=== PATIENT | female | born 1945 | race Caucasian/White ===

== ENCOUNTER → 2017-10-06 | Outpatient (CLI) | payer MEDICARE ==
[~2017-10-06] MED LIST: ALBU8.5H IH; AMIO200T51 PO; APIX2.5T PO; ASPI-757 PO; ASPI-816 CHEW; ASPI81TA94 PO; ATOR10TA24 PO; ATOR20TA22 PO; ATOR40TA24 PO; AZIT-17 PO; CAR3.125 PO; CLOP75TA43 PO; DOCU-202 PO; DOCU-416 PO; FLUT1DIS28 IH; FURO-45 PO; IPRA3AMP21 IH; LISI-362 PO; LISI5TAB25 PO; LOR5/325 PO; LOSA25TA50 PO; METO50TA19 PO; MULT-865 PO; MULT1CAP59 PO; MYLANTA; OMEP-218 PO; OXYGENHOME INH; POTA10CA40 PO; PRED20TA6 PO; SPIR25TA76 PO; SPIR25TA78 PO; TIOT4MIS3 INH; TRAM-420 PO
[2017-10-06 17:26] LABS: PLATELET COUNT, AUTOMATED 178 K/uL (150-450)
== END ==
LOC: LAB 16:54
PROVIDERS: ATTEND Emergency Medicine
DX: I48.2 Chronic atrial fibrillation (principal); R07.89 Other chest pain; R06.00 Dyspnea, unspecified
CPT/HCPCS: 36415; 82040; 82247; 82274; 82310; 82374; 82435; 82565; 82947; 83880; 84075; 84132; 84155; 84295; 84443; 84450; 84460; 84484; 84520; 85025; 85379

== ENCOUNTER → 2017-12-30 | Outpatient (CLI) | payer MEDICARE ==
[~2017-12-30] MED LIST changes: +ATOR40TA69 PO; +DIPH-1 PO; +FERR-53 PO; +ONDA4TAB97 PO
--- NOTE | 2017-12-31 18:00 | RT HOLTER TEST ---
FACILITY: [facility] PATIENT NAME: ANGIE LORENZO : [id number] MR: [id number] V: [id number] EXAM DATE: ORDERING PHYSICIAN: ELI LOCKETT TECHNOLOGIST: RAJIV Doan date: 2017-12-30 13:16:00 Duration: 23:47:00 Test Indications: AFIB Medications: 373980 QRS complexes 35262 Ventricular ectopics which represent 20 % of total QRS comp. 1420 Supraventricular ectopics which represent 1 % of total QRS comp. * Paced QRS complexes which represent % of total QRS comp. VENTRICULAR ECTOPY 62972 Isolated 2204 Bigeminal Cycles 3087 Couplets 616 Runs 2034 Beats in Runs 8 Beats LONGEST at 110 BPM at 04:18:10 2017-12-31 3 Beats FASTEST at 192 BPM at 01:15:16 2017-12-31 SUPRAVENTRICULAR ECTOPY 1371 Isolated 10 Couplets 5 Runs 29 Beats in Runs 14 Beats LONGEST at 175 BPM at 13:50:16 2017-12-30 14 Beats FASTEST at 175 BPM at 13:50:16 2017-12-30 HEART RATES 67 MIN at 07:35:49 2017-12-31 88 AVG 178 MAX at 13:50:19 2017-12-30 LONGEST RR 1.312 secs at 04:51:31 2017-12-31 S-T LEVELS Channel 1 -12.800 mm MIN at 13:16:00 2017-12-30 -12.800 mm MAX at 13:16:00 2017-12-30 Channel 2 -12.800 mm MIN at 13:16:00 2017-12-30 -12.800 mm MAX at 13:16:00 2017-12-30 Channel 3 -12.800 mm MIN at 13:16:00 2017-12-30 -12.800 mm MAX at 13:16:00 2017-12-30 There were no reported symptoms during the test. The patient has an intraventricular conduction michelle y and is predominantly in a sinus rhythm. There was much ventricular ectopy (VE) beats including couplets and bigeminy. There was a 4 beat run of VE at 110 beats per minute (bpm) and a 3 beat run at 94 bpm. There was some supraventricular ectopy (SVE) including a 14 beat run at 175 bpm, a 5 be at run at 172 bpm and a 4 beat run at 152 bpm. Confirmed by MANFRED SKELTON ([id number]) on 12/31/2017 5:59:49 PM Referred By: Overread By: MANFRED SKELTON
== END ==
LOC: RESP 02:39
PROVIDERS: ATTEND Internal Medicine Clinical Cardiac Electrophysiology
DX: I48.1 Persistent atrial fibrillation (principal)
CPT/HCPCS: 93225; 93226

== ENCOUNTER → 2018-01-26 | Outpatient (CLI) | payer MEDICARE ==
[~2018-01-26] MED LIST changes: -ASPI-816 CHEW; +ASPI-870 CHEW
[2018-01-26 16:35] LABS: PLATELET COUNT, AUTOMATED 162 K/uL (150-450)
== END ==
LOC: LAB 16:19
PROVIDERS: ATTEND Emergency Medicine
DX: I50.9 Heart failure, unspecified (principal); D64.9 Anemia, unspecified
CPT/HCPCS: 36415; 82465; 83718; 84478; 85025

== ENCOUNTER → 2018-04-08 | Outpatient (CLI) | payer MEDICARE ==
[~2018-04-08] MED LIST changes: +FLUT1AER INH; +IPRA3AMP10 IH; -IPRA3AMP21 IH; -SPIR25TA78 PO; +SPIR25TA80 PO
== END ==
LOC: US 07:21
PROVIDERS: ATTEND Internal Medicine Clinical Cardiac Electrophysiology
DX: I51.7 Cardiomegaly (principal); I50.9 Heart failure, unspecified
CPT/HCPCS: 93325; C8929; Q9957

== ENCOUNTER → 2018-04-29 | Outpatient (CLI) | payer MEDICARE ==
[2018-04-29 16:17] LABS: PLATELET COUNT, AUTOMATED 116 K/uL (150-450)
[2018-04-29 16:35] LABS: LDL CHOLESTEROL 62 mg/dl
== END ==
LOC: LAB 15:56
PROVIDERS: ATTEND Emergency Medicine
DX: I25.10 Atherosclerotic heart disease of native coronary artery without angina pectoris (principal); R25.2 Cramp and spasm; D69.6 Thrombocytopenia, unspecified
CPT/HCPCS: 36415; 82040; 82247; 82306; 82310; 82374; 82435; 82465; 82550; 82565; 82607; 82947; 83540; 83550; 83718; 84075; 84132; 84155; 84295; 84450; 84460; 84478; 84520; 85025

== ENCOUNTER → 2018-05-11 | Outpatient (CLI) | payer MEDICARE | LOC: LAB 13:17 | PROVIDERS: ATTEND Internal Medicine Clinical Cardiac Electrophysiology | DX: I48.1 Persistent atrial fibrillation (principal) | CPT/HCPCS: 36415; 85027 ==

== ENCOUNTER 2018-07-04 15:49 | Emergency (ER) | payer MEDICARE ==
[~2018-07-04 15:49] MED LIST changes: -BUME1TAB19 PO; -METO25TA23 PO
[2018-07-04] MEDS ORDERED: BUME1TAB19 PO (16:02)
[2018-07-04] MEDS ORDERED: METO25TA23 PO (16:02)
--- NOTE | 2018-07-04 16:17 | ER Report ---
History and Physical Time Seen By MD: 15:57 HPI/ROS CHIEF COMPLAINT: fluid overload HISTORY OF PRESENT ILLNESS: Pt is 72 y/o f with chf, htn, chronic afib on multiple vasoactive medications and diuretics, recently placed on bumex due to LE edema refractory to lasix. Despite this, pt has had continued slight weight gain, increasing LE edema and pain, and now with inability to perform ADL's due to discomfort. Pt c/o some sob with mild exertion as well as recumbancy; lies on 2 pillows daily, which is change.No chest pain REVIEW OF SYSTEMS: Constitutional: No fever, no chills. Eyes: No discharge. ENT: No sore throat. Cardiovascular: No chest pain, no palpitations. Respiratory: above Gastrointestinal: No abdominal pain, no vomiting. Genitourinary: No hematuria. Musculoskeletal: No back pain. Skin: No rashes. Neurological: No headache. Remainder of the 14 system rev: Yes Allergies: Coded Allergies: Penicillins (Verified Allergy, Unknown, 07/04/18) RASH cefprozil (Verified Allergy, Unknown, 07/04/18) rofecoxib (Verified Allergy, Unknown, 07/04/18) Home Meds Active Scripts Potassium Chloride (POTASSIUM CHLORIDE) 10 Meq Capsule.er, 10 MEQ PO DAILY, #90 TAB 3 Refills Prov:SPIKE ANDERSON MD 06/03/18 Fluticasone/Vilanterol 100/25 Mcg/Inh (BREO ELLIPTA 100/25 MCG) 1 Each Aer.pow.ba, 1 INH INH DAILY, #1 INH 11 Refills Prov:SPIKE ANDERSON MD 02/05/18 Spironolactone (ALDACTONE) 25 Mg Tablet, 1 TAB PO QDAY, #90 TAB 3 Refills Prov:SPIKE ANDERSON MD 02/02/18 Atorvastatin Calcium (ATORVASTATIN CALCIUM) 40 Mg Tablet, 1 TAB PO QDAY, #90 TAB 3 Refills Prov:SPIKE ANDERSON MD 11/21/17 Ferrous Sulfate (FERROUS SULFATE) 325 Mg Tablet, 325 MG PO DAILY, #100 TAB 1 Refill Prov:SPIKE ANDERSON MD 10/13/17 Ipratropium/Albuterol Sulfate (IPRAT-ALBUT 0.5-3(2.5) MG/3 ML) 3 Ml Ampul.neb, 3 ML IH Q4-6H, #1 BOX Prov:JAD SWENSON [facility] 07/25/17 Albuterol Sulfate 90 Mcg/Act (PROAIR HFA 90 MCG/ACT) 8.5 Gm Hfa.aer.ad, 1-2 PUFF IH 3-4XD, #1 INHALER Prov:JAD SWENSON [facility] 07/25/17 Reported Medications Metoprolol Succinate (METOPROLOL SUCCINATE) 25 Mg Tab.er.24h, 50 TAB PO QDAY 07/04/18 Bumetanide (BUMETANIDE) 1 Mg Tablet, 2 TAB PO QDAY 07/04/18 Oxygen (OXYGEN) Inha, 2 L INH DAILY, L 10/06/17 Losartan Potassium (LOSARTAN POTASSIUM) 25 Mg Tablet, 25 MG PO QDAY 07/25/17 Furosemide (FUROSEMIDE) 20 Mg Tablet, 1 TAB PO DAILY, TAB 07/25/17 Aspirin (ASPIRIN) 81 Mg Tab.chew, 81 MG PO QDAY, TAB.CHEW 07/25/17 Omeprazole Magnesium (PRILOSEC OTC) 20 Mg Tablet.dr, 2 TAB PO DAILY, TAB 07/25/17 Discontinued Scripts Tramadol Hcl (TRAMADOL HCL) 50 Mg Tablet, 50 MG PO Q4-6H, #30 TAB Prov:SPIKE ANDERSON MD 04/13/18 Diphenoxylate Hcl/Atropine (LOMOTIL TABLET) 1 Each Tablet, 1 EACH PO QID, #30 TAB Prov:SPIKE ANDERSON MD 11/03/17 Reviewed Nurses Notes: Yes Old Medical Records Reviewed: Yes Hx Smoking: Yes Smoking Status: Former Smoker Exposure to Second Hand Smoke?: No Hx Substance Use Disorder: No Hx Alcohol Use: No Constitutional Vital Sign - Last 24 Hours 07/04/18 07/04/18 07/04/18 07/04/18 16:00 16:00 16:14 16:19 Temp 97.8 Pulse 85 117 Resp 20 B/P (MAP) 131/73 131/73 (92) Pulse Ox 90 75 O2 Delivery Nasal Cannula O2 Flow Rate 3.0 07/04/18 07/04/18 07/04/18 07/04/18 16:30 16:34 16:49 17:00 Pulse 119 111 Resp 24 23 B/P (MAP) 90/58 (69) 84/66 (72) Pulse Ox 96 96 07/04/18 07/04/18 07/04/18 07/04/18 17:04 17:09 17:13 17:18 Pulse 110 109 Resp 26 17 B/P (MAP) 82/70 (74) 101/81 (88) Pulse Ox 96 96 07/04/18 07/04/18 07/04/18 07/04/18 17:24 17:30 17:35 17:50 Pulse 124 119 120 Resp 21 24 18 B/P (MAP) 85/63 (70) Pulse Ox 92 96 96 07/04/18 07/04/18 07/04/18 07/04/18 18:05 18:10 18:15 18:41 Pulse 127 122 128 123 Resp 17 21 33 22 B/P (MAP) 86/63 (71) 123/57 (79) Pulse Ox 93 95 99 99 07/04/18 07/04/18 19:01 19:20 Pulse 122 118 Resp 20 20 B/P (MAP) 85/54 (64) 86/53 (64) Pulse Ox 95 96 O2 Delivery Nasal Cannula Nasal Cannula O2 Flow Rate 3 Intake and Output 07/04/18 07/04/18 07/05/18 15:00 23:00 07:00 Intake Total 125 ml Output Total 50 ml Balance 75 ml Physical Exam General Appearance: The patient is alert, has no immediate need for airway protection and no signs of toxicity. Pt on baseline 02, slightly dyspneic on conversation Eyes: Pupils equal and round no pallor or injection. ENT, Mouth: Mucous membranes are moist. Respiratory: There are no retractions, decreased at bases, occ ronchi Cardiovascular: irreg rhythm, reg rate Gastrointestinal: Abdomen is soft and non tender, no masses, bowel sounds normal. Neurological: alert, oriented Skin: Warm and dry, no rashes. Musculoskeletal: Neck is supple non tender. ext - sig bilat edema. No focal cords or ttp [ ] [DIFFERENTIAL DIAGNOSIS: After history and physical exam differential diagnosis was considered for chest pain including but not limited to myocardial ischemia, pericarditis pulmonary embolus, chest wall pain, pleural inflammation and pulmon arash infectious causes.shortness of breath including but not limited to pulmonary infectious process, COPD, asthma, pulmonary embolus and congestive heart failure. Medical Decision Making Data Points Result Diagram: 07/04/18 16207/04/181623 Laboratory Hematology Test 07/04/18 16:24 07/04/18 17:25 Red Blood Count 4.81 M/uL (4.17-5.56) Mean Corpuscular Volume 94.7 fL (80.0-96.0) Mean Corpuscular Hemoglobin 30.9 pg (26.0-33.0) Mean Corpuscular Hemoglobin Concent 32.6 g/dL (32.0-36.0) Red Cell Distribution Width 15.7 % (11.5-14.5) Mean Platelet Volume 10.1 fL (7.2-11.1) Neutrophils (%) (Auto) 60.6 % (39.4-72.5) Lymphocytes (%) (Auto) 32.1 % (17.6-49.6) Monocytes (%) (Auto) 5.8 % (4.1-12.4) Eosinophils (%) (Auto) 0.5 % (0.4-6.7) Basophils (%) (Auto) 1.0 % (0.3-1.4) Nucleated RBC Relative Count (auto) 0.2 /100WBC Neutrophils # (Auto) 3.1 K/uL (2.0-7.4) Lymphocytes # (Auto) 1.6 K/uL (1.3-3.6) Monocytes # (Auto) 0.3 K/uL (0.3-1.0) Eosinophils # (Auto) 0.0 K/uL (0.0-0.5) Basophils # (Auto) 0.1 K/uL (0.0-0.1) Nucleated RBC Absolute Count (auto) 0.01 K/uL Sodium Level 135 mmol/L (137-145) Potassium Level 4.1 mmol/L (3.5-5.0) Chloride Level 95 mmol/L (98-107) Carbon Dioxide Level 24 mmol/L (22-31) Blood Urea Nitrogen 32 mg/dl (7-18) Creatinine 1.80 mg/dl (0.52-1.04) Glomerular Filtration Rate Calc 27.7 Random Glucose 116 mg/dl (75-110) Calcium Level 9.1 mg/dl (8.4-10.2) Total Bilirubin 4.3 mg/dl (0.2-1.3) Aspartate Amino Transf (AST/SGOT) 70 U/L (0-35) Alanine Aminotransferase (ALT/SGPT) 66 U/L (0-56) Alkaline Phosphatase 129 U/L (0-126) Troponin I 0.058 ng/ml B-Type Natriuretic Peptide 1060 pg/ml (0-100) Total Protein 6.5 g/dl (6.3-8.2) Albumin 3.4 g/dl (3.5-5.0) Urine Color Catarina Urine Clarity Slightly-cloudy Urine pH 5.0 pH (4.8-9.5) Urine Specific [place] 1.013 Urine Protein 30 mg/dL (NEGATIVE) Urine Glucose (UA) Negative mg/dL (NEGATIVE) Urine Ketones Negative mg/dL (NEGATIVE) Urine Blood Negative (NEGATIVE) Urine Nitrite Negative (NEGATIVE) Urine Bilirubin Negative (NEGATIVE) Urine Urobilinogen 4.0 mg/dL (0.2-1.9) Urine Leukocyte Esterase Trace (NEGATIVE) Urine RBC 1 /HPF (0-2/HPF) Urine WBC 38 /HPF (0-5/HPF) Urine WBC Clumps Few /HPF Urine Squamous Epithelial Cells Many /LPF (NONE-FEW) Urine Bacteria Few /HPF (NONE-FEW) Urine Hyaline Casts Many /LPF (NONE-FEW) Urine Mucus Few /HPF (NONE-FEW) Chemistry Test 07/04/18 16:24 07/04/18 17:25 White Blood Count 5.1 k/uL (4.5-11.0) Red Blood Count 4.81 M/uL (4.17-5.56) Hemoglobin 14.8 g/dL (12.0-16.0) Hematocrit 45.6 % (34.0-47.0) Mean Corpuscular Volume 94.7 fL (80.0-96.0) Mean Corpuscular Hemoglobin 30.9 pg (26.0-33.0) Mean Corpuscular Hemoglobin Concent 32.6 g/dL (32.0-36.0) Red Cell Distribution Width 15.7 % (11.5-14.5) Platelet Count 106 K/uL (150-450) Mean Platelet Volume 10.1 fL (7.2-11.1) Neutrophils (%) (Auto) 60.6 % (39.4-72.5) Lymphocytes (%) (Auto) 32.1 % (17.6-49.6) Monocytes (%) (Auto) 5.8 % (4.1-12.4) Eosinophils (%) (Auto) 0.5 % (0.4-6.7) Basophils (%) (Auto) 1.0 % (0.3-1.4) Nucleated RBC Relative Count (auto) 0.2 /100WBC Neutrophils # (Auto) 3.1 K/uL (2.0-7.4) Lymphocytes # (Auto) 1.6 K/uL (1.3-3.6) Monocytes # (Auto) 0.3 K/uL (0.3-1.0) Eosinophils # (Auto) 0.0 K/uL (0.0-0.5) Basophils # (Auto) 0.1 K/uL (0.0-0.1) Nucleated RBC Absolute Count (auto) 0.01 K/uL Glomerular Filtration Rate Calc 27.7 Calcium Level 9.1 mg/dl (8.4-10.2) Total Bilirubin 4.3 mg/dl (0.2-1.3) Aspartate Amino Transf (AST/SGOT) 70 U/L (0-35) Alanine Aminotransferase (ALT/SGPT) 66 U/L (0-56) Alkaline Phosphatase 129 U/L (0-126) Troponin I 0.058 ng/ml B-Type Natriuretic Peptide 1060 pg/ml (0-100) Total Protein 6.5 g/dl (6.3-8.2) Albumin 3.4 g/dl (3.5-5.0) Urine Color Catarina Urine Clarity Slightly-cloudy Urine pH 5.0 pH (4.8-9.5) Urine Specific [place] 1.013 Urine Protein 30 mg/dL (NEGATIVE) Urine Glucose (UA) Negative mg/dL (NEGATIVE) Urine Ketones Negative mg/dL (NEGATIVE) Urine Blood Negative (NEGATIVE) Urine Nitrite Negative (NEGATIVE) Urine Bilirubin Negative (NEGATIVE) Urine Urobilinogen 4.0 mg/dL (0.2-1.9) Urine Leukocyte Esterase Trace (NEGATIVE) Urine RBC 1 /HPF (0-2/HPF) Urine WBC 38 /HPF (0-5/HPF) Urine WBC Clumps Few /HPF Urine Squamous Epithelial Cells Many /LPF (NONE-FEW) Urine Bacteria Few /HPF (NONE-FEW) Urine Hyaline Casts Many /LPF (NONE-FEW) Urine Mucus Few /HPF (NONE-FEW) Urinalysis Test 07/04/18 17:25 Urine Color Catarina Urine Clarity Slightly-cloudy Urine pH 5.0 pH (4.8-9.5) Urine Specific [place] 1.013 Urine Protein 30 mg/dL (NEGATIVE) Urine Glucose (UA) Negative mg/dL (NEGATIVE) Urine Ketones Negative mg/dL (NEGATIVE) Urine Blood Negative (NEGATIVE) Urine Nitrite Negative (NEGATIVE) Urine Bilirubin Negative (NEGATIVE) Urine Urobilinogen 4.0 mg/dL (0.2-1.9) Urine Leukocyte Esterase Trace (NEGATIVE) Urine RBC 1 /HPF (0-2/HPF) Urine WBC 38 /HPF (0-5/HPF) Urine WBC Clumps Few /HPF Urine Squamous Epithelial Cells Many /LPF (NONE-FEW) Urine Bacteria Few /HPF (NONE-FEW) Urine Hyaline Casts Many /LPF (NONE-FEW) Urine Mucus Few /HPF (NONE-FEW) EKG/Imaging EKG Interpretation 12 lead EKG: Rhythm: atrial fibrillation [place]: normal QRS: borderline qrs ST segments: twi throughout no stemi Monitor Interpretation: Atrial Fibrillation Imaging X-ray: chest was obtained. I viewed the images myself on the PACS system. My interpretation of the images is: left pleural effusion. The radiologist interpretation had no clinically significant variation from this interpretation. ED Course/Re-evaluation Clinical Indication for ER IV: Hypotention ED Course Patient presents with evidence of acute fluid overload, both peripheral edema as well as left pleural effusion. We'll her initial blood pressure is normal repeat blood pressures show systolics in consistently in the 80s. Heart rate is between 110 and 125 with atrial fibrillation. I considered that she is unstable due to the A. fib with RVR, however also consider instability due to decreased EF as evidenced by bedside ultrasound, which I performed to rule out pericardial effusion. There is no evidence of pericardial effusion. Patient also has evidence of decreased intravascular volume as her urine output is less than 50 ML's within the first 2 hours of Metz catheter placement. I consult cardiology at [facility] and talked with Dr. Wood. After discussion of case we agreed to try 125 ML's of normal saline over an hour. I also spoke with Dr. Dixon, hospitalist at [facility], for admission. We will transfer and admit to stepdown unit. We considered rate or rhythm control, however patient is high risk for thromboembolus. Given EF, she is not a great candidate for rhythm control with other then digitoxin. On my reassessment prior to receiving fluids, blood pressure was 74 systolic. At this point I feel like central line benefits outweigh risk. I consented patient for central line and placed a right IJ central line under ultrasound guidance. After IV fluids and central line placement, patient does have a systolic blood pressure 125 with heart rate between 110 and 115. If she becomes hypotensive I will consider either dobutamine or initiation of digoxin for rate control. At this point, patient has been stabilized as best as possible for transfer. Patient understands risks of transfer. In discussion with the patient she also did reiterate she is full code. Procedure Procedure: Central line placement. After written informed consent from patient; with the risks explained to be bleeding, infection, and collapsed lung; maximal sterile barrier technique was uses including cap, gown, sterile gloves, large sheet, hand washing and chlorhe xidine prep. The area anesthetized with 1% lidocaine. The right IJ was punctured with a 19 gauge finder needle, then a wire introducer was placed, a 7 Chinese triple lumen was placed using Seldinger technique. There were no complications. Blood return low pressure, dark blood. Patient tolerated procedure well. CXR results: initially CL 2.5 cm deep; CL was adjusted; I reviewed xray. Xray was interpreted by myself. Radiologist interpretation is pending. The procedure was performed by myself. Decision to Disposition Date: Jul 04, 2018 Decision to Disposition Time: 19:00 Critical Care Time I spent a total of 80 minutes of critical care time in obtaining history, performing a physical exam, bedside monitoring of interventions, collecting and interpreting tests and discussion with consultants but not including time spent performing procedures. Depart Departure Latest Vital Signs Vital Signs Date Time Temp Pulse Resp B/P (MAP) Pulse Ox O2 Delivery O2 Flow Rate FiO2 07/04/18 19:20 118 20 86/53 (64) 96 Nasal Cannula 07/04/18 19:01 3 07/04/18 16:00 97.8 Impression: Primary Impression: Acute CHF Additional Impression: Atrial fibrillation with rapid ventricular response Condition: Improved Disposition: XFER TO [facility] ([facility] - SDU, cardiolgist) Referrals: SPIKE ANDERSON MD (PCP) Problem Qualifiers Primary Impression: Acute CHF Heart failure type: unspecified Qualified Codes: I50.9 - Heart failure, unspecified TANYA SEALS MD Jul 04, 2018 16:17
--- NOTE | 2018-07-04 16:31 | EKG ---
FACILITY: [facility] [place] PATIENT NAME: ANGIE LORENZO : [id number] MR: [id number] V: [id number] EXAM DATE: ORDERING PHYSICIAN: TANYA SEALS TECHNOLOGIST: STEVEN Test Reason : SOB Blood Pressure : / mmHG Vent. Rate : 125 BPM Atrial Rate : 120 BPM P-R Int : 000 ms QRS Dur : 092 ms QT Int : 298 ms P-R-T Axes : 000 -09 159 degrees QTc Int : 430 ms Atrial fibrillation with rapid ventricular response Poor R wave progression anteriorly - question previous infarct ST and T wave abnormality, consider lateral ischemia Abnormal ECG Confirmed by CHARO TAYLOR ([id number]) on 07/05/2018 3:18:17 AM Referred By: BOZENA Confirmed By:CHARO TAYLOR
[2018-07-04 16:47] LABS: PLATELET COUNT, AUTOMATED 106 K/uL (150-450)
--- NOTE | 2018-07-04 17:04 | RADIOLOGY IMAGING REPORT ---
FACILITY: [facility] - [place] PATIENT NAME: Zabrina Jean : 1945 MR: [id number] V: [id number] EXAM DATE: ORDERING PHYSICIAN: TANYA SEALS TECHNOLOGIST: Location: [facility] [place] Patient: Zabrina Jean : 1945 Visit/Account:[id number] Date of Sevice: 07/04/2018 Examination: CHEST SINGLE AP Comparison: 07/25/2017 and earlier. History: shortness of breath Findings: Enlarged cardiac silhouette is minimally changed. Sternotomy wires are midline and intact. Coronary artery bypass. AICD. Hilar contour is within normal limits. Superior mediastinal vascular st ents. Small to moderate left pleural effusion is now present. Left lung base volume loss versus consolidati on. No consolidation or effusion on the right. No pneumothorax. No acute osseous abnormality. IMPRESSION: 1. Unchanged cardiac silhouette enlargement. 2. Left sided small to moderate pleural effusion. 3. Left lower lobe volume loss versus consolidation; correlation with any evidence of a pneumonia is recommended. Report Dictated By: Dany Madrid MD at 07/04/2018 4:58 PM Report E-Signed By: Dany Madrid MD at 07/04/2018 5:00 PM WSN:[id number]
[2018-07-04] MEDS ORDERED: BUMETANIDE 1 MG/4 ML SDV IV ONE (17:15)
[2018-07-04] MEDS ORDERED: NS(*) 0.9% 1000 ML BAG 1,000 ML IV ONE (17:50)
[2018-07-04 19:20] VITALS: BP 86/53
--- NOTE | 2018-07-04 19:26 | RADIOLOGY IMAGING REPORT ---
FACILITY: [facility] PATIENT NAME: Zabrina Jean : 1945 MR: [id number] V: [id number] EXAM DATE: ORDERING PHYSICIAN: TANYA SEALS TECHNOLOGIST: [place] [facility] [place] Zabrina Jean : 1945 Visit/Account:[id number] Date of Sevice: 07/04/2018 Examination: CHEST SINGLE AP Comparison: Same day and earlier. History: Right internal jugular central line placement. Findings: Right internal jugular central venous catheter with the tip in the upper superior vena cava . Unchanged mild cardiac silhouette enlargement. Pacemaker. Midline sternotomy. Intravascular stents. Left small to moderate pleural effusion as before. Left lower lung volume loss versus consolidation. No pneumothorax. No acute osseous normality. IMPRESSION: 1. Right internal jugular central venous catheter. No pneumothorax. 2. Chest is otherwise unchanged. Report Dictated By: Dany Madrid MD at 07/04/2018 7:18 PM Report E-Signed By: Dany Madrid MD at 07/04/2018 7:22 PM WSN:[id number]
== END 2018-07-04 19:22 | disposition short-term general hospital (02) ==
LOC: ER 15:55
DX: I50.9 Heart failure, unspecified (principal); I48.2 Chronic atrial fibrillation
CPT/HCPCS: 36556; 71045; 81001; 83880; 84484; 85025; 93005; 96360; 99291; 99292; J7030; 82040; 82247; 82310; 82374; 82435; 82565; 82947; 84075; 84132; 84155; 84295; 84450; 84460; 84520

== ENCOUNTER → 2018-07-04 | Outpatient (CLI) | payer MEDICARE ==
[~2018-07-04] MED LIST changes: +BUME1TAB19 PO; -LOSA25TA50 PO; +LOSA25TA52 PO; +METO25TA23 PO
== END ==
LOC: AMB 19:05
PROVIDERS: ATTEND Nurse Practitioner
DX: R60.9 Edema, unspecified (principal); I50.9 Heart failure, unspecified; I48.91 Unspecified atrial fibrillation; I95.9 Hypotension, unspecified
CPT/HCPCS: A0425; A0426

== ENCOUNTER → 2018-08-10 | Outpatient (CLI) | payer MEDICARE ==
[~2018-08-10] MED LIST changes: +AMIO200T49 PO; +APIX5TAB PO; +BUME1TAB19 PO; +CHOL10005 PO; +CYAN100T25 PO; +CYCL-277 PO; +FURO80TA70 PO; +METO25TA23 PO; +PANT20TA27 PO; +ROPI0.2530 PO
== END ==
LOC: LAB 16:19
PROVIDERS: ATTEND Emergency Medicine
DX: D64.9 Anemia, unspecified (principal); E53.8 Deficiency of other specified B group vitamins; E55.9 Vitamin D deficiency, unspecified; I50.22 Chronic systolic (congestive) heart failure
CPT/HCPCS: 36415; 82306; 82310; 82374; 82435; 82565; 82607; 82947; 83540; 83550; 84132; 84295; 84520

== ENCOUNTER 2018-09-11 13:00 | Outpatient (RCR) | payer MEDICARE ==
--- NOTE | 2018-08-25 11:08 | PT INITIAL EVALUATION ---
MEDICAL DIAGNOSIS: back pain TREATMENT DIAGNOSIS: same DATE OF ONSET: 08/10/18 SUBJECTIVE: Zabrina Jean presents to physical therapy with complaints of back pain that started approximately 2 weeks ago with no mechanism of injury. She reports that she has had this pain in the past and has typically gotten better with medications and with time, but she reports that this time feels different as it has not made any improvements with medications and rest. She reports that she was hospitalized in [place] for 1.5 weeks due to CHF and then stayed at a rehab facility for 1.5 months to recover some strength from the CHF. She reports that she has returned home approximately 10 days ago and the pain started soon after she returned home. She reports that her pain is worse with bending, sitting, rising, standing, and in the am. She reports that the pain is better with walking and as the day progresses. She rates her current pain to be 5/10 and feels like it spreads from L side of her back to the R side of her back with the R worse than the L. She reports that she only feels pain in the center with improved posture. She reports that the pain spreads to the R and L side when slumping. . Pain location is T7-L4 spinous process from L to R side and described as . Pain scale is 5 on a ten point pain scale. REHAB PROBLEM LIST: Increased Pain Decreased ROM Decreased Strength Decreased Endurance Decreased Balance Decreased Function Decreased ADL's PREVIOUS MEDICAL HISTORY: See EMR OCCUPATION: Retired OBJECTIVE: Posture: She demonstrates forward head, increased thoracic kyphosis, and decreased lumbar lordosis. ROM: Trunk AROM: flexion: minimal restriction with muscular end feel. extension: minimal restriction with painful end feel. side gliding R: major restriction with painful end feel. side gliding L: minimal restriction with muscular end feel. Palpation: TTP: T7-L4 spinous process from L to R side Special Tests: Oswestry Low Back Pain Disability Questionnaire: 20/45. Mobility: Modified independent Gait: With cane as AD: she demonstrates forward trunk lean, decreased B step lengths, increase base of support, decreased velocity, increased trunk lean, and decreased pelvic mobility. Balance: Will test in the future ASSESSMENT: Zabrina will benefit from skilled physical therapy addressing the listed impairments to improve function and QOL. Her provisional classification is posterior derangement that centralized with extension based principles along with posture modifications. Short Term Goals 2 weeks: Pt will demonstrate centralized back pain and increased trunk AROM in all directions to improve function and QOL. 4 weeks: Pt will demonstrate abolished back pain and maintained trunk AROM in all directions to improve function and QOL. 6 weeks: Pt will return to prior level of function along with abolished back pain to improve function and QOL. Patient's Goals abolish back pain PLAN: Patient to be seen for Manual Therapy/STM/MET Strengthening/condition Range of Motion Spinal Stabilization Work Hardening/Cond Stretching Neuromuscular Re-ed Closed Chain Program Posture/Body mechanics Gait Trg/Balance Trg Home Exercise Program Therapeutic Activities 2x/week for 6 Weeks If you have any questions, comments, or concerns about this report or plan, please contact me at . Thank you, Johnathan Centeno, PT, DPT MTDD
[~2018-09-11 13:00] MED LIST changes: +CYA1000 PO; +HYDR-385 PO; -LOSA25TA52 PO; +LOSA25TA57 PO
[2018-09-24] MEDS ORDERED: HYDR-385 PO (16:37)
[2018-09-28] MEDS ORDERED: HYDR-385 PO (12:22)
[2018-10-01] MEDS ORDERED: PANT20TA27 PO (10:52)
[2018-10-02] MEDS ORDERED: PANT40TA65 PO (13:45)
[2018-10-02] MEDS ORDERED: POTA10CA40 PO (15:56)
[2018-10-02] MEDS ORDERED: RIVA15TA PO (15:57)
[2018-10-12] MEDS ORDERED: RIVA20TA PO (16:39)
[2018-10-13] MEDS ORDERED: POTA10CA40 PO (09:01)
[2018-10-13] MEDS ORDERED: FERR-53 PO (13:19)
--- NOTE | 2018-10-21 11:08 | PT PLAN OF CARE ---
Physician: Sury Gooden MD Patient is being seen: 1-2x/week Therapist: Johnathan Centeno, PT, DPT Medical Diagnosis: back pain Treatment Diagnosis: same Date of Onset: 08/10/18 Date of Initial Evaluation: 08/24/18 Date patient was last seen: 10/20/18 Number of treatments: 5 Number of cancellations/No shows: 3 INTERVENTIONS: Manual Therapy/STM/MET Strengthening/condition Range of Motion Spinal Stabilization Work Hardening/Cond Stretching Neuromuscular Re-ed Closed Chain Program Posture/Body mechanics Gait Trg/Balance Trg Home Exercise Program Therapeutic Activities GOALS: 2 weeks: Pt will demonstrate centralized back pain and increased trunk AROM in all directions to improve function and QOL. 4 weeks: Pt will demonstrate abolished back pain and maintained trunk AROM in all directions to improve function and QOL. 6 weeks: Pt will return to prior level of function along with abolished back pain to improve function and QOL. PATIENT'S GOAL: abolish back pain Status of Patient's Goals: Progressed Patient Compliance: Fair Prognosis: Excellent Reasons for continuing therapy: This is a discharge note for Zabrina Jean. Our last contact with her she reported the following: She reports that following the previous session in August she developed increased low back pain associated with peripheralizing pain down her LE and could not bear weight on the LE due to pain; however, since that point she feels like she has returned to normal. She denies any current pain. She continues to demonstrate directional preference for extension in the thoracic and lumbar region. However, she reported that she would like to get more imaging performed before proceeding with PT. As a result, she will be discharged from PT. Posture: She demonstrates forward head, increased thoracic kyphosis, and decreased lumbar lordosis. ROM: Trunk AROM: flexion: minimal restriction with muscular end feel. extension: minimal restriction with painful end feel. side gliding R: major restriction with painful end feel. side gliding L: minimal restriction with muscular end feel. Strength: Palpation: TTP: T7-L4 spinous process from L to R side Special Tests: Oswestry Low Back Pain Disability Questionnaire: 20/45. Mobility: Modified independent If you have any questions, please contact me at [phone]. Thank you, Johnathan Centeno, PT, DPT [facility]
[2018-11-10] MEDS ORDERED: ROPI0.2527 PO (13:30)
== END 2018-11-22 ==
LOC: PT 13:00
PROVIDERS: ATTEND Emergency Medicine
DX: M54.9 Dorsalgia, unspecified (principal)
CPT/HCPCS: 97162

== ENCOUNTER → 2018-10-01 | Outpatient (CLI) | payer MEDICARE ==
[~2018-10-01] MED LIST changes: +PANT40TA65 PO; +RIVA15TA PO
== END ==
LOC: RESP 01:04
PROVIDERS: ATTEND Internal Medicine Clinical Cardiac Electrophysiology
DX: Z51.81 Encounter for therapeutic drug level monitoring (principal)

== ENCOUNTER → 2018-10-12 | Outpatient (REF) | payer MEDICARE ==
[~2018-10-12] MED LIST changes: +RIVA20TA PO
== END ==
LOC: LAB 16:41
PROVIDERS: ATTEND Emergency Medicine
DX: I50.22 Chronic systolic (congestive) heart failure (principal)
CPT/HCPCS: 36415; 82040; 82247; 82310; 82374; 82435; 82565; 82947; 84075; 84132; 84155; 84295; 84450; 84460; 84520; 85027

== ENCOUNTER → 2018-11-02 | Outpatient (CLI) | payer MEDICARE ==
[~2018-11-02] MED LIST changes: +IOPAMIDOL 76% 150 ML INFUS BTL 150 ML ONE
--- NOTE | 2018-11-02 14:55 | RADIOLOGY IMAGING REPORT ---
FACILITY: [facility] PATIENT NAME: Zabrina Jean : 1945 MR: [id number] V: [id number] EXAM DATE: ORDERING PHYSICIAN: SPIKE ANDERSON TECHNOLOGIST: Location: [facility] [place] Patient: Zabrina Jean : 1945 Visit/Account:[id number] Date of Sevice: 11/02/2018 CT CHEST ABDOMEN PELVIS W & W/O HISTORY: weight loss ADDITIONAL HISTORY: None. TECHNIQUE: Pre and post administration of IV contrast axial images acquired through the chest abdome n and pelvis during the portal venous phase. Coronal and sagittal reformatting was also performed.Do se Lowering Technique One of the following dose optimization techniques was utilized in the performance of this exam: Autom ated exposure control; adjustment of the mA and/or kV according to the patient's size; or use of an i terative reconstruction technique. Specific details can be referenced in the facility's radiology C T exam operational policy. CONTRAST: 75 mL Isovue-370 COMPARISON: CTA runoff July 31, 2016 FINDINGS: CHEST: Lungs/Pleura: Centrilobular emphysema again seen throughout the lungs. There has been interval deve lopment of peripheral septal thickening most prominent in the upper lobes. There is linear scarring in the inferior lower lobes. There is a small posterior layering left pleural effusion Mediastinum/lymph nodes: Negative. Heart/vessels: Cardiomegaly, prominent pulmonary arteries. Extensive calcifications of the thoracic aorta and branch vessels including the coronary arteries. Is a dual lead cardiac pacemaker Bones/soft tissues: Multiple compression fractures in the thoracic spine appear similar to the prior study ABDOMEN AND PELVIS: Hepatobiliary: Cholelithiasis although no evidence of bony ductal dilatation Spleen: Negative. Pancreas: Negative. Adrenals: Negative. Kidneys ureters and bladder : There is mild atrophy of the right kidney which is increased when ania red to the prior study. The bladder is decompressed. There are several tiny nonobstructing calculi in the left renal collecting system Genitalia: Hysterectomy GI: There is diverticulosis throughout the left-sided colon although no CT evidence of acute divert iculitis Vessels/spaces/nodes: Extensive atherosclerotic calcified occasions are seen throughout the chest ab domen pelvis. This appears to advanced when compared to the prior study. Moderate to severe narrowi ng is identified the origins of the celiac trunk and SMA. High-grade narrowing noted at the origin o f the right renal artery and moderate severe narrowing at the origin of the left renal artery. Bilob ed fusiform infrarenal abdominal aortic aneurysm is again noted which has increased in size with exte nsive mural thrombus. 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 The right co mmon femoral artery is reconstituted via collaterals. There is severe narrowing at the origin of the left common iliac artery. A small amount of free pelvic fluid Bones/soft tissues: There extensive spondylotic changes throughout the visualized spine. Is a mild approximate 30% compression fracture of L2 approximate 20% compression fracture of L1 approximate 40% compression fracture T12. Is a right hip arthroplasty. There are moderate severe degenerative jones ges left hip joint Additional findings: None pertinent. IMPRESSION: Centrilobular emphysema throughout the lungs. There is been development of peripheral septal thicken ing most prominent in the upper lobes and development of a new small posterior layering left pleural effusion. Cardiomegaly and prominent pulmonary arteries which can be seen with pulmonary arterial hypertension Severe atherosclerotic calcifications throughout the chest seven pelvis as detailed above including a bilobed fusiform infrarenal abdominal aortic aneurysm which is increasing in size. Cholelithi sis Mild atrophy of the right kidney when compared to the prior study which may be on the basis of severe right renal artery stenosis Diverticulosis without the left-sided colon Additional chronic findings as describedReport Dictated By: Kerry Velasquez MD at 11/02/2018 2:23 PM Report E-Signed By: Kerry Velasquez MD at 11/02/2018 2:51 PM WSN:[id number]
== END ==
LOC: CT 01:54
PROVIDERS: ATTEND Emergency Medicine
DX: I51.7 Cardiomegaly (principal); I25.10 Atherosclerotic heart disease of native coronary artery without angina pectoris; J43.8 Other emphysema; K57.30 Diverticulosis of large intestine without perforation or abscess without bleeding; N26.1 Atrophy of kidney (terminal); I71.4 Abdominal aortic aneurysm, without rupture
CPT/HCPCS: 71270; 74178; Q9967

== ENCOUNTER → 2018-12-01 | Outpatient (CLI) | payer MEDICARE ==
[~2018-12-01] MED LIST changes: -IOPAMIDOL 76% 150 ML INFUS BTL 150 ML ONE; +ROPI0.2527 PO
== END ==
LOC: LAB 12:57
PROVIDERS: ATTEND Internal Medicine Clinical Cardiac Electrophysiology
DX: Z02.9 Encounter for administrative examinations, unspecified (principal)

== ENCOUNTER → 2018-12-01 | Outpatient (CLI) | payer MEDICARE ==
[2018-12-01 13:19] LABS: PLATELET COUNT, AUTOMATED 138 K/uL (150-450)
== END ==
LOC: LAB 12:59
PROVIDERS: ATTEND Emergency Medicine
DX: E87.6 Hypokalemia (principal); I10 Essential (primary) hypertension
CPT/HCPCS: 36415; 82310; 82374; 82435; 82550; 82565; 82947; 84132; 84295; 84520; 85025

== ENCOUNTER → 2018-12-07 | Outpatient (CLI) | payer MEDICARE | LOC: LAB 10:20 | PROVIDERS: ATTEND Internal Medicine Clinical Cardiac Electrophysiology | DX: I50.21 Acute systolic (congestive) heart failure (principal) | CPT/HCPCS: 36415; 82310; 82374; 82435; 82565; 82947; 84132; 84295; 84520 ==

== ENCOUNTER → 2018-12-22 | Outpatient (CLI) | payer MEDICARE ==
[2018-12-22 13:50] LABS: INR 2.39
== END ==
LOC: LAB 13:24
PROVIDERS: ATTEND Internal Medicine Clinical Cardiac Electrophysiology
DX: I48.1 Persistent atrial fibrillation (principal)
CPT/HCPCS: 36415; 85610

== ENCOUNTER → 2018-12-31 | Outpatient (CLI) | payer MEDICARE ==
[~2018-12-31] MED LIST changes: +ACET-2031 PO; +CHOL100059 PO; +METO2.5T15 PO; +POTA-53 PO
[2018-12-31 11:04] LABS: PLATELET COUNT, AUTOMATED 168 K/uL (150-450)
== END ==
LOC: LAB 10:50
PROVIDERS: ATTEND Emergency Medicine
DX: I48.1 Persistent atrial fibrillation (principal)
CPT/HCPCS: 36415; 82310; 82374; 82435; 82565; 82947; 83880; 84132; 84295; 84520; 85025

== ENCOUNTER → 2019-01-05 | Outpatient (CLI) | payer MEDICARE ==
[~2019-01-05] MED LIST changes: +ROPI1TAB36 PO; +SULF-198 PO
== END ==
LOC: LAB 10:28
PROVIDERS: ATTEND Emergency Medicine
DX: I50.9 Heart failure, unspecified (principal)
CPT/HCPCS: 36415; 82310; 82374; 82435; 82565; 82947; 83880; 84132; 84295; 84520

== ENCOUNTER → 2019-01-18 | Outpatient (CLI) | payer MEDICARE ==
[~2019-01-18] MED LIST changes: -CYAN100T25 PO; +CYAN100T26 PO
== END ==
LOC: AMB 09:15
PROVIDERS: ATTEND Nurse Practitioner
DX: I46.9 Cardiac arrest, cause unspecified (principal)
CPT/HCPCS: A0429